=== PATIENT | female | born 1985 | race Two or more races ===

== ENCOUNTER 2017-06-06 15:58 | Emergency (ER) | payer MEDICAID, OTHER ==
[2017-06-06] MEDS ORDERED: NS 0.9% 1000 ML* 1,000 ML IV ONE (17:42)
--- NOTE | 2017-06-06 18:54 | ED ---
Gayathri Martínez Thomas, scribed for Aubrey Padilla MD on 06/06/17 at 1651 . - HPI Summary HPI Summary: The patient is a 29-weeks , 31 year old female who woke up this morning with nausea. She felt as if she was going to pass out, and she vomited prior to arrival. She took acetaminophen x 2. She complains of mild chest pain that radiates to her neck. Her chest pain was relieved when she vomited. She also complains of a headache, diaphoresis, and chills. She denies back pain, leg swelling, vaginal bleeding and contractions. G2, P0, A1. - History of Current Complaint Chief Complaint: EDChestPainROMI Stated Complaint: CHEST PAIN/VOMITING/29 WKS PREG Time Seen by Provider: 06/06/17 16:11 Hx Obtained From: Patient Onset/Duration: Still Present Timing: Constant Current Severity: Moderate Location of Pain: Other: - chest Aggravating Factors: Nothing Alleviating Factors: Nothing Associated Signs and Symptoms: Positive: Nausea, Vomiting. Negative: Back Pain - Allergies/Home Medications Allergies/Adverse Reactions: Allergies Allergy/AdvReac Type Severity Reaction Status Date / Time No Known Allergies Allergy Verified 06/06/17 17:40 PMH/Surg Hx/FS Hx/Imm Hx Sensory History: Denies: Hx Legally Blind, Hx Deafness EENT History: Denies: Hx Deafness Infectious Disease History: Denies: Traveled Outside the [place] in Last 30 Days - Family History Known Family History: Negative: Blood Disorder - Social History Alcohol Use: None Substance Use Type: Reports: None Smoking Status (MU): Never Smoked Tobacco Review of Systems Positive: Chills, Skin Diaphoresis. Negative: Fever Positive: Chest Pain Positive: Vomiting, Nausea Positive: Headache All Other Systems Reviewed And Are Negative: Yes Physical Exam - Summary Physical Exam Summary: General: well-appearing, no pain distress Skin: warm, color reflects adequate perfusion, dry Head: normal Eyes: EOMI, VERN ENT: normal Neck: supple, nontender Respiratory: CTA, breath sounds present Cardiovascular: RRR Abdomen: soft, gravid, nontender Bowel: present Musculoskeletal: normal, strength/ROM intact Neurological: normal, sensory/motor intact, A&O x3 Psychological: affect/mood appropriate - Physical Exam Triage Information Reviewed: Yes Vital Signs Reviewed: Yes Diagnostics - Vital Signs Vital Signs Pulse Resp BP Pulse Ox 06/06/17 18:13 82 19 116/101 99 06/06/17 18:06 81 11 99 06/06/17 18:04 14 06/06/17 17:30 81 18 104/68 97 06/06/17 17:00 80 20 101/61 96 06/06/17 16:30 80 99/60 96 06/06/17 16:26 79 97 06/06/17 16:25 103/63 - Laboratory Lab Statement: Any lab studies that have been ordered have been reviewed, and results considered in the medical decision making process. - EKG 15:54 Cardiac Rate: NL EKG Rhythm: Sinus Rhythm - at [address] Segment: Normal Ectopy: None Course/Dx - Course Course Of Treatment: PATIENT DECLINED LAB WORK AND CXR. FEELS IMPROVED AFTER IVF. VSS IN ED. F/U OBGYN, RETURN IF WORSE. - Diagnoses Provider Diagnoses: Chest pain, Vomiting during Discharge - Sign-Out/Discharge Documenting (check all that apply): Discharge - Discharge Plan Condition: Stable Disposition: HOME Patient Education Materials: Chest Pain (ED), Nausea and Vomiting in (ED) Referrals: Ena Metz MD [Primary Care Provider] - Additional Instructions: FOLLOW UP WITH YOUR OBGYN. RETURN TO THE EMERGENCY DEPARTMENT FOR ANY WORSENING OF YOUR CONDITION OR QUESTIONS OR CONCERNS. - Billing Disposition and Condition Condition: STABLE Disposition: HOME The documentation as recorded by the Gayathri lyman Thomas accurately reflects the service I personally performed and the decisions made by me, Aubrey Padilla MD.
[2017-06-06 18:57] VITALS: BP 101/58
[2017-06-06 19:05] LABS: Urine Appearance Clear; Urine Blood Negative (Negative); Urine Color Yellow; Urine Ketones 1+ (Negative); Urine Protein Negative (Negative); Urine Urobilinogen Negative (Negative)
== END 2017-06-06 19:19 | disposition home or self-care (01) ==
LOC: ED 15:58
DX: O21.2 Late vomiting of pregnancy (principal); R07.89 Other chest pain; R51 Headache; R61 Generalized hyperhidrosis; Z3A.29 29 weeks gestation of pregnancy
CPT/HCPCS: 81003; 93005; 96360; 99282

== ENCOUNTER 2017-08-18 06:01 | Inpatient (IN) | payer OTHER ==
[2017-08-18] MEDS ORDERED: Penicillin G Potassium IV* 5,000,000 UNITS in NS 0.9% 100 ML* 100 ML IVPB ONE (08:00)
--- NOTE | 2017-08-18 11:47 | HP ---
General Information - General Information Maternal Age: 31 Grav: 2 Para: 0 SAB: 0 IEA: 1 Estimated Due Date: 08/21/17 Determined By: Early Ultrasound Gestational Age in Weeks and Days: 39 Weeks and 4 Days Maternal Blood Type and Rh: A Positive - Results this Serology/RPR Result: Non-Reactive Rubella Result: Immune HBsAg Result: Negative HIV Result: Negative GBS Culture Result: Positive Past Medical History Delivery History: See Records - Primip Pertinent Past Medical History: See Records Past Medical History Comment: Depression/ anxiety Pertinent Past Surgical History: See Records - tonsillectomy/ wisdom tooth extraction Pertinent Family History: Non-Contributory - Antepartal Records Antepartal Records: Reviewed, Uncomplicated Review of Systems Constitutional: Comfortable CV Complaint: No Respiratory: Shortness of Breath: No Gastrointestinal: No Nausea/Vomiting, Normal Bowel Movement Genitourinary: Leaking Fluid, No Dysuria, No Bleeding Musculoskeletal: No Complaint, Contractions - occasional Neurological: No Headache, No Visual Changes Movement: Normal Exam Allergies/Adverse Reactions: Allergies No Known Allergies Allergy (Verified 08/18/17 07:15) T-98.7, P-77, R-18, BP-129/70, O2-97% Lab Values - Entire Visit: Laboratory Tests 08/18/17 07:00 Vag Amniotic Fld Detect Positive - Measurements Height: 5 ft 1 in Weight: 64.41 kg Weight in lbs: 142 Body Mass Index (BMI): 26.8 Pre- Weight: 48.988 kg Weight Gained This : 34 lbs and 0 ozs - Exam Abdomen: No Upper Quadrant Pain Breast: Breast Exam Deferred CVA: No CVA Tenderness Extremities: No Edema Heart: Normal Rhythm/Heart Sounds HEENT: No Significant Findings Lungs: Clear Bilaterally Reflexes: DTR 2+ Thyroid: No Thyromegaly - Abdominal Exam Abdomen Exam: Non-Tender, Fundal Height Consistent with Dates - Ultrasound/Biophysical Profile Ultrasound Status: Bedside Exam Ultrasound Findings: VTX position Targeted Exam Findings See L&D Outpatient Visit Provider Note for Findings: Yes Estimated Weight: 7.5# Amniotic Fluid Evaluation: Gross Rupture, Positive ROM Plus - Vaginal exam deferred as pt +SROM, not in active labor EFM Findings - External Monitor Findings Baseline Heart Rate: 140 External Monitor Findings: Accelerations Present, No Pattern of Variable or Late Decelerations, Variability Moderate, Baseline Stable Contractions: Irregular, Mild, < 45 Seconds Assessment/Plan - Reason for Visit Reason for Visit: Pt w/ SROM at 0340 w/ clear fluid. Pt is GBS positive. - Obstetrical Risk Factors Obstetrical Risk Factors: GBS Positive - Plan Plan: Observe, Antibiotic Prophylaxis Plan Comment: Recommended initiation of abx prophylaxis for GBS positive status and augmentation of labor with misoprostol to hasten onset of active labor. Pt initially refused both. Reviewed at length recommendations for prevention of GBS infection through prophylactic abx. After discussion pt agreeable to initiation of abx prophylaxis. Pt continues to decline augmentation of labor at this time. Will readdress if no onset active labor at 12 hours post ROM. - Date/Time of Admission Date of Admission: 08/18/17 Time of Admission: 08:30
[2017-08-18 12:07] LABS: Hematocrit 37 % (35-47); Hemoglobin 12.6 g/dl (12.0-16.0); Mean Corpuscular HGB Conc 34 g/dl (31-36); Mean Corpuscular Hemoglobin 30 pg (27-31); Mean Corpuscular Volume 89 fL (80-97); Mean Platelet Volume 9.3 um3 (7.4-10.4); Platelet Count 169 10^3/ul (150-450); Red Blood Count 4.17 10^6/ul (4.0-5.4); Red Cell Distribution Width 15 % (10.5-15); White Blood Count 13.1 10^3/ul (3.5-10.8)
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
[2017-08-18] MEDS: Penicillin G Potassium IV* 2,500,000 UNITS in NS 0.9% 100 ML* 100 ML IVPB SCH ×2 (19:37→23:45)
[2017-08-18] MEDS ORDERED: Calcium Carbonate CHEW TAB* 500 MG (TUMS) PO PRN (22:44)
[2017-08-18] MEDS ORDERED: Calcium Carbonate CHEW TAB* 500 MG (TUMS) ONE (22:56)
[2017-08-19] MEDS: Penicillin G Potassium IV* 2,500,000 UNITS in NS 0.9% 100 ML* 100 ML IVPB SCH ×7 (03:14→23:19)
[2017-08-20] MEDS ORDERED: Oxytocin in LR* 20 UNITS/1,000 ML BAG IVPB ONE (00:54)
[2017-08-20] MEDS ORDERED: Ibuprofen TAB* 600 MG PO PRN (03:37)
[2017-08-20] MEDS ORDERED: Glycerin ADULT SUPP PR PRN (03:37)
[2017-08-20] MEDS ORDERED: Witch Hazel PAD* JAR TOPICAL PRN (03:37)
[2017-08-20] MEDS ORDERED: Dibucaine 1% 28.35 GM TUBE PR PRN (03:37)
[2017-08-20] MEDS ORDERED: Acetaminophen TAB* 325 MG PO PRN (03:37)
[2017-08-20] MEDS ORDERED: Oxytocin in LR* 20 UNITS/1,000 ML BAG IVPB SCH (04:00)
[2017-08-20] MEDS: Docusate CAP* 100 MG PO SCH ×3 (09:52→22:15)
[2017-08-21 07:31] LABS: Hematocrit 30 % (35-47); Hemoglobin 10.2 g/dl (12.0-16.0); Mean Corpuscular HGB Conc 35 g/dl (31-36); Mean Corpuscular Hemoglobin 31 pg (27-31); Mean Corpuscular Volume 89 fL (80-97); Mean Platelet Volume 8.5 um3 (7.4-10.4); Platelet Count 127 10^3/ul (150-450); Red Blood Count 3.34 10^6/ul (4.0-5.4); Red Cell Distribution Width 15 % (10.5-15); White Blood Count 10.7 10^3/ul (3.5-10.8)
[2017-08-21] MEDS: Docusate CAP* 100 MG PO SCH ×3 (07:56→20:39)
[2017-08-21] MEDS ORDERED: Ferrous Gluconate TAB* 324 MG TAB PO SCH (09:00)
--- NOTE | 2017-08-21 20:14 | PTEDU ---
Patient Name: LETI RICKS LETI RICKS selected video: Never Ever Shake a Baby to view on 08/21/2017 at 8:13:49 PM from [facility] [id number]
--- NOTE | 2017-08-21 20:26 | PTEDU ---
Patient Name: LETI RICKS LETI RICKS selected video: BBOB: Nurturing Your Gorgeous &Growing Baby by to view on 08/21/2017 at 8:25:14 PM from [id number]
--- NOTE | 2017-08-21 20:55 | PTEDU ---
Patient Name: LETI RICKS LETI RICKS selected video: BBOB: Bonding Through Infant Massage to view on 08/21/2017 at 8:55:0 4 PM from [id number]
--- NOTE | 2017-08-21 21:12 | PTEDU ---
Patient Name: LETI RICKS LETI RICKS selected video: Follow Me Mum: The Her to Successful to view on 2017 at 9:11:33 PM from [email or web address]
[2017-08-22 08:26] VITALS: BP 110/65
[2017-08-22] MEDS: Docusate CAP* 100 MG PO SCH (12:17)
== END 2017-08-22 13:05 | disposition home or self-care (01) | DRG 560 ==
LOC: MCHOBOUT 06:01 → MCHOB 07:47
PROVIDERS: ADMIT Midwife; ATTEND Midwife
PROC: 10E0XZZ Delivery of Products of Conception, External Approach (ICD-10-PCS; principal; 2017-08-20)
PROC: 0HQ9XZZ Repair Perineum Skin, External Approach (ICD-10-PCS; 2017-08-20)
DX: O42.02 Full-term premature rupture of membranes, onset of labor within 24 hours of rupture (principal); O99.824 Streptococcus B carrier state complicating childbirth; O70.0 First degree perineal laceration during delivery; O99.344 Other mental disorders complicating childbirth; F32.9 Major depressive disorder, single episode, unspecified; F41.9 Anxiety disorder, unspecified; Z3A.39 39 weeks gestation of pregnancy; Z37.0 Single live birth
CPT/HCPCS: 36415; 84112; 85027; 86850; 86900; 86901; A9270-GY; J2540